=== PATIENT | male | born 1980 | race American Indian/Alaskan Native ===

== ENCOUNTER 2019-10-06 20:00 | Emergency (ER) | payer OTHER ==
[2019-10-06 20:43] VITALS: BP 176/104
--- NOTE | 2019-10-07 00:29 | Emergency Department Report ---
ED General Adult HPI - General Chief complaint: High BP Stated complaint: ELEVATED BLOOD PRESSURE Time Seen by Provider: 10/07/19 00:14 Source: patient Mode of arrival: Ambulatory Limitations: No Limitations - History of Present Illness Initial comments: 39-year-old -[place] male presents to the emergency room stating his blood pressure reading was 173/100. Patient states that he takes losartan and a water pill. Patient reports he takes his dose around 11 AM. Patient does not have any other complaints. Patient denies any chest pain shortness of breathing no headache no dizziness no nausea no vomiting diarrhea. Patient states that his primary care doctor is Dr. figueroa in the last seen about 3 months ago. Patient reports his next appointment is sometime in February. Patient has no known drug allergies. -: This evening Severity scale (0 -10): 0 Improves with: none Worsens with: none Associated Symptoms: denies other symptoms. denies: chest pain, cough, diaphoresis, fever/chills, headaches, loss of appetite, nausea/vomiting, shortness of breath, weakness Treatments Prior to Arrival: none - Related Data Allergies Allergy/AdvReac Type Severity Reaction Status Date / Time No Known Allergies Allergy Unverified 10/06/19 20:38 ED Review of Systems ROS: Stated complaint: ELEVATED BLOOD PRESSURE Other details as noted in HPI Comment: All other systems reviewed and negative ED Past Medical Hx - Past Medical History Previous Medical History?: Yes Hx Hypertension: Yes Additional medical history: lupus - Surgical History Past Surgical History?: No - Social History Smoking Status: Never Smoker Substance Use Type: None ED Physical Exam - General Limitations: No Limitations General appearance: alert, in no apparent distress - Head Head exam: Present: atraumatic, normocephalic - Eye Eye exam: Present: normal appearance - ENT ENT exam: Present: mucous membranes moist - Neck Neck exam: Present: normal inspection - Respiratory Respiratory exam: Present: normal lung sounds bilaterally. Absent: respiratory distress - Cardiovascular Cardiovascular Exam: Present: regular rate, normal rhythm. Absent: systolic murmur, diastolic murmur, rubs, gallop - GI/Abdominal GI/Abdominal exam: Present: soft, normal bowel sounds - Rectal Rectal exam: Present: deferred - Extremities Exam Extremities exam: Present: normal inspection - Back Exam Back exam: Present: normal inspection - Neurological Exam Neurological exam: Present: alert, oriented X3 - Psychiatric Psychiatric exam: Present: normal affect, normal mood - Skin Skin exam: Present: warm, dry, intact, normal color. Absent: rash ED Course Vital Signs 10/06/19 20:41 Temperature 99.0 F Pulse Rate 69 Respiratory 18 Rate Blood Pressure 176/104 O2 Sat by Pulse 94 Oximetry ED Medical Decision Making - Medical Decision Making 39-year-old -[place] male presents to the emergency room stating his blood pressure reading was 173/100. Patient states that he takes losartan and a water pill. Patient reports he takes his dose around 11 AM. Patient does not have any other complaints. Patient denies any chest pain shortness of breathing no headache no dizziness no nausea no vomiting diarrhea. Patient states that his primary care doctor is Dr. figueroa in the last seen about 3 months ago. Patient reports his next appointment is sometime in February. Patient has no known drug allergies. Discussed with patient that he needs to follow-up with his primary care provider for medication adjustment. Patient instructed to call his primary care provider on Wednesday to be followed up next week. Also discussed with patient to increase his water intake. Decrease his sodium intake. Start to read labels stay away from canned foods and processed foods. Patient verbalized understanding. Critical care attestation.: If time is entered above; I have spent that time in minutes in the direct care of this critically ill patient, excluding procedure time. ED Disposition Clinical Impression: Elevated blood pressure reading Hypertension Qualifiers: Hypertension type: essential hypertension Qualified Code(s): I10 - Essential (primary) hypertension Disposition: -01 TO HOME OR SELFCARE Is pt being admited?: No Does the pt Need Aspirin: No Condition: Stable Instructions: Hypertension (ED), DASH Eating Plan (ED), Low Sodium Diet (ED) Additional Instructions: Continue taking your blood pressure medicines as prescribed. Follow a low sodium low diet. Increase your water intake. Follow-up with your primary care provider next week. Referrals: KEVEN PEÑA MD [Primary Care Provider] - 3-5 Days
== END 2019-10-07 00:15 | disposition home or self-care (01) ==
LOC: ED 20:00
DX: I10 Essential (primary) hypertension (principal); R03.0 Elevated blood-pressure reading, without diagnosis of hypertension
CPT/HCPCS: 99281